=== PATIENT | male | born 1955 | race African-American/Black ===

== ENCOUNTER 2017-11-15 17:30 | Emergency (ER) | payer MEDICARE ==
[~2017-11-15] VITALS: Ht 172.7 cm; Wt 72.5 kg
[~2017-11-15 17:30] MED LIST: ALBU17AE27 IH; ALBU8.5H8 IH; BECL8.7A6 IH
[2017-11-15] MEDS ORDERED: PRED1 PO (17:36)
[2017-11-15] MEDS ORDERED: IPRATROPIUM BROMIDE 0.5 MG/2.5 ML NEB SOLUTION NEB ONE (17:45)
[2017-11-15] MEDS ORDERED: DEXAMETHASONE SOD PHOS 4 MG/ML 5 ML VIAL IM ONE (17:45)
[2017-11-15] MEDS ORDERED: ALBUTEROL SULFATE 5 MG/ML 20 ML NEB SOLN [BULK] NEB ONE (17:45)
[2017-11-15] MEDS ORDERED: 0.9% SODIUM CHLORIDE 5 ML NEB SOLUTION NEB ONE (17:59)
[2017-11-15] MEDS ORDERED: ALBUTEROL SULFATE HFA 90 MCG/PUFF 8 GM INHALER IH ONE (19:00)
[2017-11-15 19:04] VITALS: BP 123/77
== END 2017-11-15 19:18 | disposition home or self-care (01) ==
LOC: EMS 17:31
DX: J45.901 Unspecified asthma with (acute) exacerbation (principal); F12.10 Cannabis abuse, uncomplicated; F17.210 Nicotine dependence, cigarettes, uncomplicated; E78.00 Pure hypercholesterolemia, unspecified; R06.03 Acute respiratory distress; Z76.0 Encounter for issue of repeat prescription; Z88.6 Allergy status to analgesic agent
CPT/HCPCS: 94644; 96372; 99285; 99406; J1100; J3535

== ENCOUNTER 2017-11-29 02:15 | Emergency (ER) | payer MEDICARE ==
[~2017-11-29] VITALS: Ht 172.7 cm; Wt 72.0 kg
[~2017-11-29 02:15] MED LIST changes: +PRED1 PO
[2017-11-29] MEDS ORDERED: IPRATROPIUM BROMIDE 0.5 MG/2.5 ML NEB SOLUTION NEB ONE ×2 (02:30→04:45)
[2017-11-29] MEDS ORDERED: ALBUTEROL SULFATE 5 MG/ML 20 ML NEB SOLN [BULK] NEB ONE ×2 (02:30→04:45)
[2017-11-29] MEDS ORDERED: 0.9% SODIUM CHLORIDE 5 ML NEB SOLUTION NEB ONE ×2 (02:39→04:47)
[2017-11-29] MEDS ORDERED: PredniSONE 20 MG TABLET PO ONE (04:45)
[2017-11-29 06:31] VITALS: BP 129/69
== END 2017-11-29 06:33 | disposition home or self-care (01) ==
LOC: EMS 02:16
DX: J45.901 Unspecified asthma with (acute) exacerbation (principal); E78.00 Pure hypercholesterolemia, unspecified; F12.90 Cannabis use, unspecified, uncomplicated; Z87.891 Personal history of nicotine dependence; Z88.6 Allergy status to analgesic agent
CPT/HCPCS: 94644; 94645; 99285; J7512

== ENCOUNTER 2018-01-03 11:59 | Emergency (ER) | payer MEDICARE ==
[~2018-01-03] VITALS: Ht 172.7 cm; Wt 72.7 kg
[~2018-01-03 11:59] MED LIST changes: -BECL8.7A6 IH; -PRED1 PO
[2018-01-03] MEDS ORDERED: ALBUTEROL SULFATE 2.5 MG/0.5 ML NEB SOLUTION NEB ONE ×2 (12:30→14:15)
[2018-01-03] MEDS ORDERED: IPRATROPIUM BROMIDE 0.5 MG/2.5 ML NEB SOLUTION NEB ONE ×2 (12:30→14:15)
[2018-01-03] MEDS ORDERED: 0.9% SODIUM CHLORIDE 5 ML NEB SOLUTION NEB ONE (13:26)
[2018-01-03] MEDS ORDERED: PredniSONE 20 MG TABLET PO ONE (15:00)
[2018-01-03] MEDS ORDERED: ALBUTEROL SULFATE HFA 90 MCG/PUFF 8 GM INHALER IH ONE (15:00)
[2018-01-03 15:14] VITALS: BP 118/74
== END 2018-01-03 15:17 | disposition home or self-care (01) ==
LOC: EMS 12:02
DX: J45.901 Unspecified asthma with (acute) exacerbation (principal); E78.00 Pure hypercholesterolemia, unspecified; F12.10 Cannabis abuse, uncomplicated; Z87.891 Personal history of nicotine dependence; Z79.899 Other long term (current) drug therapy; Z88.6 Allergy status to analgesic agent
CPT/HCPCS: 94640; 99285; J7512; 99284; J3535

== ENCOUNTER 2018-02-06 04:33 | Emergency (ER) | payer MEDICARE ==
[~2018-02-06] VITALS: Ht 172.7 cm; Wt 72.0 kg
[2018-02-06] MEDS ORDERED: ALBUTEROL SULFATE 2.5 MG/0.5 ML NEB SOLUTION NEB ONE (04:45)
[2018-02-06] MEDS ORDERED: IPRATROPIUM BROMIDE 0.5 MG/2.5 ML NEB SOLUTION NEB ONE (04:45)
[2018-02-06] MEDS ORDERED: MAG HYDROX/AL HYDROX/SIMETH ES 30 ML SUSPENSION UDCUP PO ONE (05:15)
[2018-02-06] MEDS ORDERED: PredniSONE 20 MG TABLET PO ONE (05:15)
[2018-02-06] MEDS ORDERED: ALBUTEROL SULFATE HFA 90 MCG/PUFF 8 GM INHALER IH ONE (05:45)
[2018-02-06 05:49] VITALS: BP 122/67
== END 2018-02-06 06:15 | disposition home or self-care (01) ==
LOC: EMS 04:34
DX: J45.901 Unspecified asthma with (acute) exacerbation (principal); K21.9 Gastro-esophageal reflux disease without esophagitis; E78.00 Pure hypercholesterolemia, unspecified; F12.90 Cannabis use, unspecified, uncomplicated; F17.210 Nicotine dependence, cigarettes, uncomplicated
CPT/HCPCS: 94640; 99284; J7512; J3535

== ENCOUNTER 2018-02-15 20:43 | Emergency (ER) | payer MEDICARE ==
[~2018-02-15] VITALS: Ht 175.3 cm; Wt 68.2 kg
[~2018-02-15 20:43] MED LIST changes: -ALBU17AE27 IH
[2018-02-15] MEDS ORDERED: IPRATROPIUM BROMIDE 0.5 MG/2.5 ML NEB SOLUTION NEB ONE (20:45)
[2018-02-15] MEDS ORDERED: ALBUTEROL SULFATE 5 MG/ML 20 ML NEB SOLN [BULK] NEB ONE (20:45)
[2018-02-15] MEDS ORDERED: 0.9% SODIUM CHLORIDE 5 ML NEB SOLUTION NEB ONE (20:54)
[2018-02-16 00:28] VITALS: BP 123/72
[2018-02-16] MEDS ORDERED: ALBUTEROL SULFATE HFA 90 MCG/PUFF 8 GM INHALER IH ONE (00:30)
== END 2018-02-16 01:00 | disposition home or self-care (01) ==
LOC: EMS 20:44
DX: J45.901 Unspecified asthma with (acute) exacerbation (principal); F12.10 Cannabis abuse, uncomplicated; Z87.891 Personal history of nicotine dependence; Z79.899 Other long term (current) drug therapy
CPT/HCPCS: 94644; 99285; J3535

== ENCOUNTER 2018-03-05 23:34 | Emergency (ER) | payer MEDICARE ==
[~2018-03-05] VITALS: Ht 175.3 cm; Wt 68.0 kg
[2018-03-06] MEDS ORDERED: ALBUTEROL SULFATE 5 MG/ML 20 ML NEB SOLN [BULK] NEB ONE (02:00)
[2018-03-06] MEDS ORDERED: IPRATROPIUM BROMIDE 0.5 MG/2.5 ML NEB SOLUTION NEB ONE ×2 (02:00)
[2018-03-06] MEDS ORDERED: PredniSONE 20 MG TABLET PO ONE (02:15)
[2018-03-06] MEDS ORDERED: NAPROXEN 250 MG TABLET PO ONE (03:45)
[2018-03-06 03:56] VITALS: BP 126/74
== END 2018-03-06 03:57 | disposition home or self-care (01) ==
LOC: EMS 23:34
DX: J45.909 Unspecified asthma, uncomplicated (principal); M79.1 Myalgia; E78.00 Pure hypercholesterolemia, unspecified; F12.90 Cannabis use, unspecified, uncomplicated; Z87.891 Personal history of nicotine dependence
CPT/HCPCS: 94060 ×2; 94644; 94645; 99291; J7512

== ENCOUNTER 2018-04-20 15:01 | Emergency (ER) | payer MEDICARE ==
[~2018-04-20] VITALS: Ht 172.7 cm; Wt 72.7 kg
[2018-04-20] MEDS ORDERED: ALBUTEROL SULFATE 5 MG/ML 20 ML NEB SOLN [BULK] NEB ONE (15:30)
[2018-04-20] MEDS ORDERED: IPRATROPIUM BROMIDE 0.5 MG/2.5 ML NEB SOLUTION NEB ONE (15:30)
[2018-04-20] MEDS ORDERED: ALBUTEROL SULFATE HFA 90 MCG/PUFF 8 GM INHALER IH ONE (15:45)
[2018-04-20 16:21] VITALS: BP 121/54
== END 2018-04-20 16:25 | disposition home or self-care (01) ==
LOC: EMS 15:02
DX: J45.901 Unspecified asthma with (acute) exacerbation (principal); F17.210 Nicotine dependence, cigarettes, uncomplicated; E78.00 Pure hypercholesterolemia, unspecified; F12.90 Cannabis use, unspecified, uncomplicated
CPT/HCPCS: 94060; 94644; 99285; 99406; J3535

== ENCOUNTER 2018-05-08 08:53 | Emergency (ER) | payer MEDICARE ==
[~2018-05-08] VITALS: Ht 172.7 cm; Wt 79.5 kg
[2018-05-08] MEDS ORDERED: IPRATROPIUM BROMIDE 0.5 MG/2.5 ML NEB SOLUTION NEB ONE (09:45)
[2018-05-08] MEDS ORDERED: ALBUTEROL SULFATE 2.5 MG/0.5 ML NEB SOLUTION NEB ONE (09:45)
[2018-05-08 10:19] VITALS: BP 112/66
== END 2018-05-08 10:41 | disposition home or self-care (01) ==
LOC: EMS 08:56
DX: J40 Bronchitis, not specified as acute or chronic (principal); E78.00 Pure hypercholesterolemia, unspecified; F12.10 Cannabis abuse, uncomplicated; Z79.899 Other long term (current) drug therapy
CPT/HCPCS: 94640; 99283

== ENCOUNTER 2018-06-21 06:38 | Emergency (ER) | payer MEDICARE ==
[~2018-06-21] VITALS: Ht 172.7 cm; Wt 65.9 kg
[2018-06-21 06:40] VITALS: BP 122/67
[2018-06-21] MEDS ORDERED: ALBUTEROL SULFATE 2.5 MG/0.5 ML NEB SOLUTION NEB ONE ×2 (06:45→07:45)
[2018-06-21] MEDS ORDERED: IPRATROPIUM BROMIDE 0.5 MG/2.5 ML NEB SOLUTION NEB ONE (06:45)
[2018-06-21] MEDS ORDERED: 0.9% SODIUM CHLORIDE 5 ML NEB SOLUTION NEB ONE ×2 (06:50→07:51)
[2018-06-21] MEDS ORDERED: DEXAMETHASONE SOD PHOS 4 MG/ML 5 ML VIAL IM ONE (07:45)
== END 2018-06-21 08:23 | disposition home or self-care (01) ==
LOC: EMS 06:39
DX: J45.909 Unspecified asthma, uncomplicated (principal); F12.90 Cannabis use, unspecified, uncomplicated; Z98.890 Other specified postprocedural states; E78.00 Pure hypercholesterolemia, unspecified; Z79.899 Other long term (current) drug therapy
CPT/HCPCS: 94640; 96372; 99284; J1100

== ENCOUNTER 2018-07-05 01:43 | Emergency (ER) | payer MEDICARE ==
[~2018-07-05] VITALS: Ht 172.7 cm; Wt 65.9 kg
[2018-07-05] MEDS ORDERED: 0.9% SODIUM CHLORIDE 5 ML NEB SOLUTION NEB ONE (02:58)
[2018-07-05] MEDS ORDERED: IPRATROPIUM BROMIDE 0.5 MG/2.5 ML NEB SOLUTION NEB ONE (03:00)
[2018-07-05] MEDS ORDERED: ALBUTEROL SULFATE 5 MG/ML 20 ML NEB SOLN [BULK] NEB ONE (03:00)
[2018-07-05] MEDS ORDERED: ALBUTEROL SULFATE HFA 90 MCG/PUFF 8 GM INHALER IH ONE (03:15)
[2018-07-05 05:41] VITALS: BP 131/71
== END 2018-07-05 05:44 | disposition home or self-care (01) ==
LOC: EMS 01:43
DX: J45.901 Unspecified asthma with (acute) exacerbation (principal); E78.00 Pure hypercholesterolemia, unspecified; F17.210 Nicotine dependence, cigarettes, uncomplicated; F12.90 Cannabis use, unspecified, uncomplicated; Z98.890 Other specified postprocedural states; Z79.899 Other long term (current) drug therapy
CPT/HCPCS: 94644; 99406; J3535

== ENCOUNTER 2018-07-13 01:20 | Emergency (ER) | payer MEDICARE ==
[~2018-07-13] VITALS: Ht 172.7 cm; Wt 65.9 kg
[2018-07-13] MEDS ORDERED: IPRATROPIUM BROMIDE 0.5 MG/2.5 ML NEB SOLUTION NEB ONE (02:00)
[2018-07-13] MEDS ORDERED: ALBUTEROL SULFATE 5 MG/ML 20 ML NEB SOLN [BULK] NEB ONE (02:00)
[2018-07-13] MEDS ORDERED: 0.9% SODIUM CHLORIDE 5 ML NEB SOLUTION NEB ONE (02:01)
[2018-07-13] MEDS ORDERED: MethylPREDNISolone SOD SUCC 125 MG/2 ML VIAL IM ONE (03:15)
[2018-07-13 03:36] VITALS: BP 115/67
[2018-07-13] MEDS ORDERED: ALBUTEROL SULFATE HFA 90 MCG/PUFF 8 GM INHALER IH ONE (03:45)
== END 2018-07-13 03:44 | disposition home or self-care (01) ==
LOC: EMS 01:21
DX: J45.901 Unspecified asthma with (acute) exacerbation (principal); E78.00 Pure hypercholesterolemia, unspecified; F17.210 Nicotine dependence, cigarettes, uncomplicated
CPT/HCPCS: 94644; 96372; 99285; J2930; J3535

== ENCOUNTER 2018-09-29 22:19 | Emergency (ER) | payer MEDICARE ==
[~2018-09-29] VITALS: Ht 167.6 cm; Wt 84.1 kg
[2018-09-29] MEDS ORDERED: ALBUTEROL SULFATE 2.5 MG/0.5 ML NEB SOLUTION NEB ONE (22:30)
[2018-09-29] MEDS ORDERED: IPRATROPIUM BROMIDE 0.5 MG/2.5 ML NEB SOLUTION NEB ONE ×2 (22:30)
[2018-09-30] MEDS ORDERED: PredniSONE 20 MG TABLET PO ONE
[2018-09-30] MEDS ORDERED: ALBUTEROL SULFATE 2.5 MG/0.5 ML NEB SOLUTION NEB ONE (00:15)
[2018-09-30] MEDS ORDERED: IPRATROPIUM BROMIDE 0.5 MG/2.5 ML NEB SOLUTION NEB ONE (00:15)
[2018-09-30] MEDS ORDERED: 0.9% SODIUM CHLORIDE 5 ML NEB SOLUTION NEB ONE (00:31)
[2018-09-30 01:24] VITALS: BP 112/72
== END 2018-09-30 01:58 | disposition home or self-care (01) ==
LOC: EMS 22:20
DX: J45.901 Unspecified asthma with (acute) exacerbation (principal); E78.00 Pure hypercholesterolemia, unspecified; F12.90 Cannabis use, unspecified, uncomplicated; F17.210 Nicotine dependence, cigarettes, uncomplicated
CPT/HCPCS: 71045; 93005; 94640; 94644; 99285; J7512; 94060

== ENCOUNTER 2018-10-14 00:20 | Emergency (ER) | payer MEDICARE ==
[~2018-10-14] VITALS: Ht 167.6 cm; Wt 80.5 kg
[2018-10-14] MEDS ORDERED: ALBUTEROL SULFATE 2.5 MG/0.5 ML NEB SOLUTION NEB ONE ×2 (00:45→02:45)
[2018-10-14] MEDS ORDERED: IPRATROPIUM BROMIDE 0.5 MG/2.5 ML NEB SOLUTION NEB ONE ×2 (00:45→02:45)
[2018-10-14 03:54] VITALS: BP 121/75
== END 2018-10-14 03:56 | disposition home or self-care (01) ==
LOC: EMS 00:20
DX: J45.909 Unspecified asthma, uncomplicated (principal); E78.00 Pure hypercholesterolemia, unspecified; F17.210 Nicotine dependence, cigarettes, uncomplicated; F12.90 Cannabis use, unspecified, uncomplicated
CPT/HCPCS: 36600; 94640

== ENCOUNTER 2018-12-18 09:38 | Emergency (ER) | payer MEDICARE ==
[~2018-12-18] VITALS: Ht 172.7 cm; Wt 68.2 kg
[2018-12-18] MEDS: LIDOCAINE 5% TRANSDERMAL PATCH TD ONE (10:28)
[2018-12-18] MEDS: CYCLOBENZAPRINE HCL 10 MG TABLET PO ONE (10:28)
[2018-12-18] MEDS: IBUPROFEN 800 MG TABLET PO ONE (10:28)
[2018-12-18 13:00] VITALS: BP 109/69
== END 2018-12-18 13:05 | disposition home or self-care (01) ==
LOC: EMS 09:38
DX: M54.5 Low back pain (principal); J45.909 Unspecified asthma, uncomplicated; E78.00 Pure hypercholesterolemia, unspecified; F17.210 Nicotine dependence, cigarettes, uncomplicated; F12.90 Cannabis use, unspecified, uncomplicated

== ENCOUNTER 2018-12-21 18:30 | Emergency (ER) | payer MEDICARE ==
[~2018-12-21] VITALS: Ht 172.7 cm; Wt 69.1 kg
[2018-12-21] MEDS ORDERED: IPRATROPIUM BROMIDE 0.5 MG/2.5 ML NEB SOLUTION NEB ONE ×2 (18:45→19:45)
[2018-12-21] MEDS ORDERED: ALBUTEROL SULFATE 2.5 MG/0.5 ML NEB SOLUTION NEB ONE (18:45)
[2018-12-21] MEDS ORDERED: LEVALBUTEROL HCL 1.25 MG/0.5 ML NEB SOLUTION NEB ONE (19:45)
[2018-12-21] MEDS ORDERED: 0.9% SODIUM CHLORIDE 5 ML NEB SOLUTION NEB ONE (19:47)
[2018-12-21] MEDS ORDERED: PredniSONE 20 MG TABLET PO ONE (21:00)
[2018-12-21 22:00] VITALS: BP 119/68
[2018-12-21] MEDS ORDERED: ALBUTEROL SULFATE HFA 90 MCG/PUFF 8 GM INHALER IH ONE (22:00)
== END 2018-12-21 23:26 | disposition home or self-care (01) ==
LOC: EMS 18:31
DX: J45.901 Unspecified asthma with (acute) exacerbation (principal); E78.00 Pure hypercholesterolemia, unspecified; F17.210 Nicotine dependence, cigarettes, uncomplicated; F12.90 Cannabis use, unspecified, uncomplicated
CPT/HCPCS: 94640; 94644; 99285; J7512; J3535

== ENCOUNTER 2019-03-14 01:48 | Emergency (ER) | payer MEDICARE ==
[~2019-03-14] VITALS: Ht 172.7 cm; Wt 68.2 kg
[2019-03-14] MEDS ORDERED: IPRATROPIUM BROMIDE 0.5 MG/2.5 ML NEB SOLUTION NEB ONE (02:00)
[2019-03-14] MEDS ORDERED: ALBUTEROL SULFATE 2.5 MG/0.5 ML NEB SOLUTION NEB ONE (02:00)
[2019-03-14] MEDS ORDERED: ALBUTEROL SULFATE HFA 90 MCG/PUFF 8 GM INHALER IH ONE (04:30)
[2019-03-14] MEDS ORDERED: PredniSONE 20 MG TABLET PO ONE (04:30)
[2019-03-14 04:42] VITALS: BP 107/54
== END 2019-03-14 04:42 | disposition home or self-care (01) ==
LOC: EMS 01:50
DX: J45.901 Unspecified asthma with (acute) exacerbation (principal); E78.00 Pure hypercholesterolemia, unspecified; F12.90 Cannabis use, unspecified, uncomplicated
CPT/HCPCS: 94060; 94640; J3535

== ENCOUNTER 2019-04-11 00:36 | Emergency (ER) | payer MEDICARE ==
[~2019-04-11] VITALS: Ht 172.7 cm; Wt 68.2 kg
[2019-04-11] MEDS ORDERED: IPRATROPIUM BROMIDE 0.5 MG/2.5 ML NEB SOLUTION NEB ONE ×2 (01:00→01:15)
[2019-04-11] MEDS ORDERED: ALBUTEROL SULFATE 2.5 MG/0.5 ML NEB SOLUTION NEB ONE (01:00)
[2019-04-11] MEDS ORDERED: PredniSONE 20 MG TABLET PO ONE (01:00)
[2019-04-11] MEDS ORDERED: 0.9% SODIUM CHLORIDE 5 ML NEB SOLUTION NEB ONE (01:12)
[2019-04-11] MEDS ORDERED: ALBUTEROL SULFATE 5 MG/ML 20 ML NEB SOLN [BULK] NEB ONE (01:15)
[2019-04-11 03:11] VITALS: BP 114/61
== END 2019-04-11 03:19 | disposition home or self-care (01) ==
LOC: EMS 00:38
DX: J45.901 Unspecified asthma with (acute) exacerbation (principal); E78.00 Pure hypercholesterolemia, unspecified; F12.90 Cannabis use, unspecified, uncomplicated; Z79.899 Other long term (current) drug therapy
CPT/HCPCS: 36415; 71045; 83880; 94640; 94644; 99285; J7512

== ENCOUNTER 2019-04-30 08:36 | Emergency (ER) | payer MEDICARE ==
[~2019-04-30] VITALS: Ht 175.3 cm; Wt 77.3 kg
[2019-04-30] MEDS ORDERED: PRED5 PO (08:39)
[2019-04-30] MEDS ORDERED: MethylPREDNISolone SOD SUCC 125 MG/2 ML VIAL IM ONE (09:30)
[2019-04-30] MEDS ORDERED: ALBUTEROL SULFATE 2.5 MG/0.5 ML NEB SOLUTION NEB ONE (09:30)
[2019-04-30] MEDS ORDERED: IPRATROPIUM BROMIDE 0.5 MG/2.5 ML NEB SOLUTION NEB ONE (09:30)
[2019-04-30] MEDS ORDERED: ALBUTEROL SULFATE 5 MG/ML 20 ML NEB SOLN [BULK] NEB ONE (10:45)
[2019-04-30 10:51] LABS: BASOPHILS % (AUTO) 0.4 % (0.0-2.0); EOSINOPHILS % (AUTO) 0 % (1.0-6.0); HEMATOCRIT 49.2 % (41-53); HEMOGLOBIN 16.1 g/dL (13.5-17.5); LYMPHOCYTES # (AUTO) 0.9 K/uL (1.0-4.8); LYMPHOCYTES % (AUTO) 14.1 % (22.0-44.0); MEAN CORPUSCULAR HEMOGLOBIN 27.4 pg (26.0-34.0); MEAN CORPUSCULAR HGB CONC 32.8 G/dL (31.0-37.0); MEAN CORPUSCULAR VOLUME 84 fL (80-100); MONOCYTES # (AUTO) 0.3 K/uL (0.1-1.0); MONOCYTES % (AUTO) 4.3 % (2.0-9.0); NEUTROPHILS # (AUTO) 5.3 K/uL (1.8-7.7); NEUTROPHILS % (AUTO) 81.2 % (40.0-70.0); PLATELET COUNT (AUTO) 234 K/uL (150-450); RED BLOOD CELL COUNT(AUTO) 5.88 MIL/uL (4.50-5.90); RED CELL DISTRIBUTION WIDTH 13.9 % (11.5-14.5)
[2019-04-30 10:59] LABS: ANION GAP 2 mmol/L (8-16); CALCIUM, TOTAL 9.1 mg/dL (8.8-10.5); CARBON DIOXIDE 32 mmol/L (22-29); CHLORIDE 104 mmol/L (98-107); CREATININE 1.11 mg/dL (0.60-1.30); GLOMERULAR FILTR. RATE CALC > 60 mL/min (>60); GLUCOSE,RANDOM 131 mg/dL (70-110); POTASSIUM 5.6 mmol/L (3.5-5.1); SODIUM SERUM 138 mmol/L (136-145); UREA NITROGEN, BLOOD 13 mg/dL (7-18)
[2019-04-30 11:04] LABS: ALANINE AMINOTRANSFERASE 32 U/L (12-78); ALBUMIN 3.3 g/dL (3.4-5.0); ALKALINE PHOSPHATASE 51 U/L (46-116); ASPARTATE AMINOTRANSFERASE 18 U/L (15-37); BILIRUBIN,TOTAL 0.5 mg/dL (0.1-1.0); TOTAL PROTEIN, SERUM 6.4 g/dL (6.4-8.2)
[2019-04-30 11:05] LABS: B-TYPE NATRIURETIC PEPTIDE < 5 pg/mL (0-100)
[2019-04-30] MEDS ORDERED: 0.9% SODIUM CHLORIDE 15 ML NEB SOLUTION NEB ONE (11:10)
[2019-04-30 12:26] VITALS: BP 120/70
== END 2019-04-30 12:53 | disposition home or self-care (01) ==
LOC: EMS 08:38
DX: J45.901 Unspecified asthma with (acute) exacerbation (principal); E78.00 Pure hypercholesterolemia, unspecified; F12.90 Cannabis use, unspecified, uncomplicated; Z79.899 Other long term (current) drug therapy
CPT/HCPCS: 36415; 71045; 80053; 83880; 84484; 85025; 94640; 94644; 96372; 99285; J2930; 94060

== ENCOUNTER 2019-08-06 08:56 | Emergency (ER) | payer MEDICARE ==
[~2019-08-06] VITALS: Ht 170.2 cm; Wt 71.4 kg
[~2019-08-06 08:56] MED LIST changes: +PRED5 PO
[2019-08-06] MEDS ORDERED: IPRATROPIUM BROMIDE 0.5 MG/2.5 ML NEB SOLUTION NEB ONE (09:30)
[2019-08-06] MEDS ORDERED: PredniSONE 20 MG TABLET PO ONE (09:30)
[2019-08-06] MEDS ORDERED: ALBUTEROL SULFATE 5 MG/ML 20 ML NEB SOLN [BULK] NEB ONE (09:30)
[2019-08-06 11:13] VITALS: BP 115/76
== END 2019-08-06 11:19 | disposition home or self-care (01) ==
LOC: EMS 08:57
DX: J45.901 Unspecified asthma with (acute) exacerbation (principal); E78.00 Pure hypercholesterolemia, unspecified; F12.90 Cannabis use, unspecified, uncomplicated; Z79.899 Other long term (current) drug therapy; Z98.890 Other specified postprocedural states
CPT/HCPCS: 94644; 99285; J7512

== ENCOUNTER 2019-11-02 00:35 | Emergency (ER) | payer MEDICARE ==
[~2019-11-02] VITALS: Ht 172.7 cm; Wt 68.2 kg
[2019-11-02] MEDS ORDERED: ALBUTEROL SULFATE 2.5 MG/0.5 ML NEB SOLUTION NEB ONE (01:15)
[2019-11-02] MEDS ORDERED: IPRATROPIUM BROMIDE 0.5 MG/2.5 ML NEB SOLUTION NEB ONE ×2 (01:15→01:45)
[2019-11-02] MEDS ORDERED: PredniSONE 20 MG TABLET PO ONE (01:45)
[2019-11-02] MEDS ORDERED: ALBUTEROL SULFATE 5 MG/ML 20 ML NEB SOLN [BULK] NEB ONE (01:45)
[2019-11-02 03:29] VITALS: BP 121/67
== END 2019-11-02 03:50 | disposition home or self-care (01) ==
LOC: EMS 00:36
DX: J45.901 Unspecified asthma with (acute) exacerbation (principal); E78.00 Pure hypercholesterolemia, unspecified; F17.210 Nicotine dependence, cigarettes, uncomplicated; Z79.899 Other long term (current) drug therapy; Z98.890 Other specified postprocedural states
CPT/HCPCS: 94640; 94644; 99285; J7512; 94060

== ENCOUNTER 2020-07-17 18:41 | Emergency (ER) | payer MEDICARE ==
[~2020-07-17] VITALS: Ht 170.2 cm; Wt 69.5 kg
[~2020-07-17 18:41] MED LIST changes: -PRED5 PO
[2020-07-17 20:18] VITALS: BP 117/65
== END 2020-07-17 20:23 | disposition home or self-care (01) ==
LOC: EMS 18:44
DX: M26.69 Other specified disorders of temporomandibular joint (principal); J45.909 Unspecified asthma, uncomplicated; E78.00 Pure hypercholesterolemia, unspecified; F17.210 Nicotine dependence, cigarettes, uncomplicated
CPT/HCPCS: 21480; Z7502

== ENCOUNTER 2020-07-31 02:10 | Emergency (ER) | payer MEDICARE ==
[~2020-07-31] VITALS: Ht 172.7 cm; Wt 68.2 kg
[2020-07-31] MEDS ORDERED: SODIUM CHLORIDE 0.9% 500 ML IV ONE (03:00)
[2020-07-31] MEDS ORDERED: MIDAZOLAM HCL 2 MG/2 ML VIAL IVP ONE (03:00)
[2020-07-31] MEDS ORDERED: FentaNYL CITRATE-PF 100 MCG/2 ML VIAL IVP ONE (03:00)
[2020-07-31] MEDS ORDERED: KETAMINE HCL 50 MG/ML 10 ML VIAL IVP ONE (03:15)
[2020-07-31 10:38] VITALS: BP 120/73
== END 2020-07-31 10:46 | disposition home or self-care (01) ==
LOC: EMS 02:12
DX: S03.03XA Dislocation of jaw, bilateral, initial encounter (principal); J45.909 Unspecified asthma, uncomplicated; E78.00 Pure hypercholesterolemia, unspecified; X58.XXXA Exposure to other specified factors, initial encounter; Y93.89 Activity, other specified; Y92.89 Other specified places as the place of occurrence of the external cause; Y99.8 Other external cause status
CPT/HCPCS: 21480; 96360; 99152; 99285; J3490; J7040; J2250; J3010

== ENCOUNTER 2020-12-08 11:53 | Emergency (ER) | payer MEDICARE ==
[~2020-12-08] VITALS: Ht 172.7 cm; Wt 69.5 kg
[2020-12-08 14:08] VITALS: BP 141/73
== END 2020-12-08 14:27 | disposition home or self-care (01) ==
LOC: EMS 12:24
DX: M70.22 Olecranon bursitis, left elbow (principal); Y93.89 Activity, other specified
CPT/HCPCS: 99283

== ENCOUNTER 2021-04-30 23:36 | Emergency (ER) | payer MEDICARE ==
[~2021-04-30] VITALS: Ht 172.7 cm; Wt 68.6 kg
[2021-05-01] MEDS ORDERED: METHOCARBAMOL 750 MG TABLET PO ONE (02:00)
[2021-05-01] MEDS ORDERED: IBUPROFEN 600 MG TABLET PO ONE (02:00)
[2021-05-01 02:45] VITALS: BP 123/80
== END 2021-05-01 03:35 | disposition home or self-care (01) ==
LOC: EMS 23:37
DX: M54.5 Low back pain (principal); J45.909 Unspecified asthma, uncomplicated; E78.00 Pure hypercholesterolemia, unspecified
CPT/HCPCS: 72100; 99283

== ENCOUNTER 2021-08-30 10:59 | Emergency (ER) | payer MEDICAID, MEDICARE ==
[~2021-08-30] VITALS: Ht 172.7 cm; Wt 68.2 kg
[2021-08-30] MEDS ORDERED: LORazepam 1 MG TABLET PO ONE (11:45)
[2021-08-30 12:00] LABS: BASOPHILS % (AUTO) 0.4 % (0.0-2.0); EOSINOPHILS % (AUTO) 4.9 % (1.0-6.0); HEMATOCRIT 45.5 % (41-53); HEMOGLOBIN 14.9 g/dL (13.5-17.5); LYMPHOCYTES % (AUTO) 25.1 % (22.0-44.0); MEAN CORPUSCULAR HEMOGLOBIN 26.4 pg (26.0-34.0); MEAN CORPUSCULAR HGB CONC 32.7 G/dL (31.0-37.0); MEAN CORPUSCULAR VOLUME 81 fL (80-100); MONOCYTES # (AUTO) 0.6 K/uL (0.1-1.0); MONOCYTES % (AUTO) 15.2 % (2.0-9.0); NEUTROPHILS # (AUTO) 2.1 K/uL (1.8-7.7); NEUTROPHILS % (AUTO) 54.4 % (40.0-70.0); PLATELET COUNT (AUTO) 219 K/uL (150-450); RED BLOOD CELL COUNT(AUTO) 5.65 MIL/uL (4.50-5.90); RED CELL DISTRIBUTION WIDTH 13.2 % (11.5-14.5)
[2021-08-30 12:13] LABS: COVID AG,FIA SOURCE NASOPHARYNGEAL
[2021-08-30 12:22] LABS: ANION GAP 6 mmol/L (8-16); CALCIUM, TOTAL 8.8 mg/dL (8.8-10.5); CARBON DIOXIDE 31 mmol/L (22-29); CHLORIDE 102 mmol/L (98-107); CREATININE 1.11 mg/dL (0.60-1.30); GLOMERULAR FILTR. RATE CALC > 60 mL/min (>60); GLUCOSE,RANDOM 83 mg/dL (70-110); POTASSIUM 4.5 mmol/L (3.5-5.1); SODIUM SERUM 139 mmol/L (136-145); UREA NITROGEN, BLOOD 15 mg/dL (7-18)
[2021-08-30 12:48] LABS: ALANINE AMINOTRANSFERASE 28 U/L (12-78); ALBUMIN 2.8 g/dL (3.4-5.0); ALKALINE PHOSPHATASE 63 U/L (46-116); ASPARTATE AMINOTRANSFERASE 25 U/L (15-37); BILIRUBIN,TOTAL 0.6 mg/dL (0.1-1.0); CREATINE KINASE, TOTAL ONLY 277 U/L (39-308); TOTAL PROTEIN, SERUM 5.6 g/dL (6.4-8.2)
[2021-08-30 12:57] VITALS: BP 118/68
== END 2021-08-30 13:48 | disposition home or self-care (01) ==
LOC: EMS 11:18
DX: F41.0 Panic disorder [episodic paroxysmal anxiety] (principal); J45.909 Unspecified asthma, uncomplicated; E78.00 Pure hypercholesterolemia, unspecified; Z20.822 Contact with and (suspected) exposure to COVID-19
CPT/HCPCS: 71045; 80053; 82550; 84484; 85025; 93005; 99285; 36415-L1; 36415-TC

== ENCOUNTER 2021-09-09 18:02 | Emergency (ER) | payer MEDICAID, MEDICARE ==
[~2021-09-09] VITALS: Ht 172.7 cm; Wt 69.1 kg
[2021-09-09] MEDS ORDERED: ALBUTEROL SULFATE HFA 90 MCG/PUFF 8 GM INHALER IH ONE (19:15)
[2021-09-09 19:52] LABS: COVID AG,FIA SOURCE NASOPHARYNGEAL
[2021-09-09 20:51] VITALS: BP 116/86
== END 2021-09-09 21:10 | disposition home or self-care (01) ==
LOC: EMS 18:05
DX: J45.901 Unspecified asthma with (acute) exacerbation (principal); E78.00 Pure hypercholesterolemia, unspecified; Z79.899 Other long term (current) drug therapy; Z20.822 Contact with and (suspected) exposure to COVID-19
CPT/HCPCS: 87426; 94640; 99283; U0003; J3535

== ENCOUNTER 2021-11-18 19:24 | Emergency (ER) | payer MEDICAID, MEDICARE ==
[~2021-11-18] VITALS: Ht 172.7 cm; Wt 69.5 kg
[2021-11-18 19:42] VITALS: BP 136/72
== END 2021-11-18 20:51 | disposition left against medical advice (07) ==
LOC: EMS 19:24
DX: M54.50 Low back pain, unspecified (principal); Z53.21 Procedure and treatment not carried out due to patient leaving prior to being seen by health care provider

== ENCOUNTER 2022-03-05 06:51 | Emergency (ER) | payer MEDICARE ==
[~2022-03-05] VITALS: Ht 172.7 cm; Wt 70.5 kg
[2022-03-05] MEDS ORDERED: ALBU8HFA IH (07:58)
[2022-03-05] MEDS ORDERED: SIMV-260 PO (07:58)
[2022-03-05] MEDS: IPRATROPIUM BROMIDE 0.5 MG/2.5 ML NEB SOLUTION NEB ONE (08:03)
[2022-03-05] MEDS: ALBUTEROL SULFATE HFA 90 MCG/PUFF 8 GM INHALER IH ONE (08:03)
[2022-03-05] MEDS: ALBUTEROL SULFATE 2.5 MG/0.5 ML NEB SOLUTION NEB ONE (08:03)
[2022-03-05 09:42] VITALS: BP 125/75
== END 2022-03-05 09:53 | disposition home or self-care (01) ==
LOC: EMS 06:52
DX: J45.901 Unspecified asthma with (acute) exacerbation (principal); E78.00 Pure hypercholesterolemia, unspecified; Z87.09 Personal history of other diseases of the respiratory system; Z98.890 Other specified postprocedural states
CPT/HCPCS: 94640; 99283; J3535

== ENCOUNTER 2022-03-25 16:42 | Emergency (ER) | payer MEDICARE ==
[~2022-03-25] VITALS: Ht 172.7 cm; Wt 72.7 kg
[~2022-03-25 16:42] MED LIST changes: -ALBU8.5H8 IH; +ALBU8HFA IH; +SIMV-260 PO
[2022-03-25] MEDS ORDERED: CYCLOBENZAPRINE HCL 10 MG TABLET PO ONE (17:30)
[2022-03-25] MEDS ORDERED: KETOROLAC TROMETHAMINE 30 MG/ML VIAL IM ONE (17:30)
[2022-03-25] MEDS ORDERED: LIDOCAINE 5% TRANSDERMAL PATCH TD ONE (17:30)
[2022-03-25] MEDS ORDERED: CYCL-448 PO (18:44)
[2022-03-25] MEDS ORDERED: IBUP-2070 PO (18:44)
[2022-03-25 18:56] VITALS: BP 118/73
== END 2022-03-25 18:57 | disposition home or self-care (01) ==
LOC: EMS 16:44
DX: M54.50 Low back pain, unspecified (principal); E78.00 Pure hypercholesterolemia, unspecified; J45.909 Unspecified asthma, uncomplicated; Z79.899 Other long term (current) drug therapy
CPT/HCPCS: 99283; 96372; J1885

== ENCOUNTER 2022-05-02 13:09 | Emergency (ER) | payer SELFPAY ==
[~2022-05-02] VITALS: Ht 172.7 cm; Wt 72.7 kg
[~2022-05-02 13:09] MED LIST changes: +CYCL-448 PO; +IBUP-2070 PO
[2022-05-02 13:26] VITALS: BP 114/50
[2022-05-02] MEDS ORDERED: CYCL-448 PO (15:44)
[2022-05-02] MEDS ORDERED: ALBU8.5H8 IH (15:44)
[2022-05-02] MEDS ORDERED: KETOROLAC TROMETHAMINE 30 MG/ML VIAL IM ONE (15:45)
== END 2022-05-02 16:16 | disposition home or self-care (01) ==
LOC: EMS 13:09
DX: M54.50 Low back pain, unspecified (principal); E78.00 Pure hypercholesterolemia, unspecified; J45.909 Unspecified asthma, uncomplicated; Z79.899 Other long term (current) drug therapy; Z76.0 Encounter for issue of repeat prescription
CPT/HCPCS: 99283; 96372; J1885

== ENCOUNTER 2022-05-19 21:03 | Emergency (ER) | payer SELFPAY ==
[~2022-05-19] VITALS: Ht 172.7 cm; Wt 72.7 kg
[~2022-05-19 21:03] MED LIST changes: +ALBU8.5H8 IH
[2022-05-20] MEDS ORDERED: IPRATROPIUM BROMIDE 0.5 MG/2.5 ML NEB SOLUTION NEB ONE (00:15)
[2022-05-20] MEDS ORDERED: ALBUTEROL SULFATE 2.5 MG/0.5 ML NEB SOLUTION NEB ONE (00:15)
[2022-05-20] MEDS ORDERED: PredniSONE 20 MG TABLET PO ONE (00:15)
[2022-05-20 00:45] LABS: BASOPHILS % (AUTO) 1.2 % (0.0-2.0); EOSINOPHILS % (AUTO) 5.1 % (1.0-6.0); HEMATOCRIT 46.2 % (41-53); HEMOGLOBIN 15.2 g/dL (13.5-17.5); LYMPHOCYTES # (AUTO) 1.5 K/uL (1.0-4.8); MEAN CORPUSCULAR HEMOGLOBIN 26.4 pg (26.0-34.0); MEAN CORPUSCULAR HGB CONC 32.8 G/dL (31.0-37.0); MEAN CORPUSCULAR VOLUME 81 fL (80-100); MONOCYTES # (AUTO) 0.6 K/uL (0.1-1.0); MONOCYTES % (AUTO) 11.6 % (2.0-9.0); NEUTROPHILS # (AUTO) 2.8 K/uL (1.8-7.7); NEUTROPHILS % (AUTO) 53.1 % (40.0-70.0); PLATELET COUNT (AUTO) 229 K/uL (150-450); RED BLOOD CELL COUNT(AUTO) 5.74 MIL/uL (4.50-5.90)
[2022-05-20 00:50] LABS: ANION GAP 6 mmol/L (8-16); CALCIUM, TOTAL 8.4 mg/dL (8.8-10.5); CARBON DIOXIDE 28 mmol/L (22-29); CHLORIDE 105 mmol/L (98-107); CREATININE 1.18 mg/dL (0.60-1.30); GLUCOSE,RANDOM 109 mg/dL (70-110); POTASSIUM 3.5 mmol/L (3.5-5.1); SODIUM SERUM 139 mmol/L (136-145); UREA NITROGEN, BLOOD 19 mg/dL (7-18)
[2022-05-20 00:51] LABS: GLOMERULAR FILTR. RATE CALC > 60 mL/min (>60)
[2022-05-20 00:57] LABS: ALANINE AMINOTRANSFERASE 30 U/L (12-78); ALKALINE PHOSPHATASE 61 U/L (46-116); ASPARTATE AMINOTRANSFERASE 24 U/L (15-37); BILIRUBIN,TOTAL 0.3 mg/dL (0.1-1.0)
[2022-05-20] MEDS ORDERED: PRED-554 PO (03:22)
[2022-05-20 03:30] VITALS: BP 131/72
== END 2022-05-20 03:55 | disposition home or self-care (01) ==
LOC: EMS 21:03
DX: J45.901 Unspecified asthma with (acute) exacerbation (principal); E78.00 Pure hypercholesterolemia, unspecified; Z98.890 Other specified postprocedural states
CPT/HCPCS: 99285; 80053; 85025; 36415; 93005; 71045; 94640; J7512; J7613

== ENCOUNTER 2022-07-03 01:58 | Emergency (ER) | payer SELFPAY ==
[~2022-07-03] VITALS: Ht 172.7 cm; Wt 72.7 kg
[~2022-07-03 01:58] MED LIST changes: -CYCL-448 PO; +PRED-554 PO
[2022-07-03] MEDS ORDERED: ALBUTEROL SULFATE HFA 90 MCG/PUFF 8 GM INHALER IH ONE (03:00)
[2022-07-03 03:09] VITALS: BP 120/84
== END 2022-07-03 03:13 | disposition home or self-care (01) ==
LOC: EMS 01:59
DX: J45.909 Unspecified asthma, uncomplicated (principal); Z76.0 Encounter for issue of repeat prescription; E78.00 Pure hypercholesterolemia, unspecified; K40.20 Bilateral inguinal hernia, without obstruction or gangrene, not specified as recurrent
CPT/HCPCS: 94640; 99281; 99283; J3535

== ENCOUNTER 2022-07-15 23:26 | Emergency (ER) | payer SELFPAY ==
[~2022-07-15] VITALS: Ht 172.7 cm; Wt 72.7 kg
[2022-07-15 23:28] VITALS: BP 108/72
[2022-07-16] MEDS ORDERED: ALBU8HFA IH (00:36)
== END 2022-07-16 01:15 | disposition home or self-care (01) ==
LOC: EMS 23:26
DX: J45.909 Unspecified asthma, uncomplicated (principal); Z76.0 Encounter for issue of repeat prescription; E78.00 Pure hypercholesterolemia, unspecified
CPT/HCPCS: 99281; Z7502

== ENCOUNTER 2022-09-30 19:30 | Emergency (ER) | payer SELFPAY ==
[~2022-09-30] VITALS: Ht 172.7 cm; Wt 74.1 kg
[~2022-09-30 19:30] MED LIST changes: +IBUP-1492 PO; -IBUP-2070 PO
[2022-09-30] MEDS ORDERED: PredniSONE 20 MG TABLET PO ONE (20:30)
[2022-09-30] MEDS ORDERED: IPRATROPIUM BROMIDE 0.5 MG/2.5 ML NEB SOLUTION NEB ONE (20:30)
[2022-09-30] MEDS ORDERED: ALBUTEROL SULFATE 2.5 MG/0.5 ML NEB SOLUTION NEB ONE (20:30)
[2022-09-30] MEDS ORDERED: PRED-554 PO (23:03)
[2022-09-30] MEDS ORDERED: ALBUTEROL SULFATE HFA 90 MCG/PUFF 8 GM INHALER IH ONE (23:15)
[2022-09-30 23:53] VITALS: BP 132/71
== END 2022-10-01 00:02 | disposition home or self-care (01) ==
LOC: EMS 19:31
DX: J45.901 Unspecified asthma with (acute) exacerbation (principal); E78.00 Pure hypercholesterolemia, unspecified; Z98.890 Other specified postprocedural states
CPT/HCPCS: 94060; 99283; 94640; J7512; J3535

== ENCOUNTER 2024-08-05 09:48 | Emergency (ER) | payer MEDICARE ==
[~2024-08-05] VITALS: Ht 172.7 cm; Wt 72.7 kg
[~2024-08-05 09:48] MED LIST changes: +ALBU18HF12 IH; -ALBU8HFA IH
[2024-08-05 09:57] VITALS: TEMP 98.9
[2024-08-05 10:39] LABS: BASOPHILS % (AUTO) 0.3 % (0.0-2.0); EOSINOPHILS % (AUTO) 1.2 % (1.0-6.0); HEMATOCRIT 51.7 % (41-53); HEMOGLOBIN 16.5 g/dL (13.5-17.5); LYMPHOCYTES # (AUTO) 0.6 K/uL (1.0-4.8); LYMPHOCYTES % (AUTO) 10.6 % (22.0-44.0); MEAN CORPUSCULAR HEMOGLOBIN 26.9 pg (26.0-34.0); MEAN CORPUSCULAR HGB CONC 31.9 G/dL (31.0-37.0); MEAN CORPUSCULAR VOLUME 84 fL (80-100); MONOCYTES # (AUTO) 0.3 K/uL (0.1-1.0); MONOCYTES % (AUTO) 6.1 % (2.0-9.0); NEUTROPHILS # (AUTO) 4.6 K/uL (1.8-7.7); NEUTROPHILS % (AUTO) 81.8 % (40.0-70.0); PLATELET COUNT (AUTO) 206 K/uL (150-450); RED BLOOD CELL COUNT(AUTO) 6.12 MIL/uL (4.50-5.90); RED CELL DISTRIBUTION WIDTH 14.1 % (11.5-14.5); WHITE BLOOD COUNT (AUTO) 5.6 K/uL (4.5-11.0)
[2024-08-05 10:50] LABS: ANION GAP 5 mmol/L (8-16); CALCIUM, TOTAL 8.2 mg/dL (8.8-10.5); CARBON DIOXIDE 31 mmol/L (22-29); CHLORIDE 103 mmol/L (98-107); GLOMERULAR FILTR. RATE CALC > 60 mL/min (>60); GLUCOSE,RANDOM 99 mg/dL (70-110); SODIUM SERUM 139 mmol/L (136-145); UREA NITROGEN, BLOOD 21 mg/dL (7-18)
[2024-08-05 12:45] VITALS: BP 105/65; PULSE 66; RESP 15; O2SAT 98
[2024-08-05] MEDS ORDERED: ONDA-243 PO (12:50)
== END 2024-08-05 13:05 | disposition home or self-care (01) ==
LOC: EMS 09:48
DX: R11.2 Nausea with vomiting, unspecified (principal); R79.89 Other specified abnormal findings of blood chemistry; R19.7 Diarrhea, unspecified; J45.909 Unspecified asthma, uncomplicated; E78.00 Pure hypercholesterolemia, unspecified; Z79.52 Long term (current) use of systemic steroids
CPT/HCPCS: 80048; 85025; 99282

== ENCOUNTER 2025-04-30 03:39 | Emergency (ER) | payer MEDICARE ==
[~2025-04-30] VITALS: Ht 172.7 cm; Wt 68.2 kg
[~2025-04-30 03:39] MED LIST changes: +ONDA-243 PO
[2025-04-30] MEDS ORDERED: TRAM50TA5 PO (04:33)
[2025-04-30] MEDS: KETOROLAC TROMETHAMINE 30 MG/ML VIAL IM ONE (05:08)
[2025-04-30 07:01] VITALS: BP 121/67; PULSE 74; RESP 20; TEMP 97.3; O2SAT 99
== END 2025-04-30 07:01 | disposition home or self-care (01) ==
LOC: EMS 03:40
DX: M77.52 Other enthesopathy of left foot and ankle (principal); M13.872 Other specified arthritis, left ankle and foot; J45.909 Unspecified asthma, uncomplicated; E78.00 Pure hypercholesterolemia, unspecified; Z79.52 Long term (current) use of systemic steroids
CPT/HCPCS: 99283; 73610; 96372; J1885